=== PATIENT | female | born 1950 ===

== ENCOUNTER 2017-08-17 09:18 | Outpatient (CLI) | payer MEDICARE ==
[2017-08-17 11:36] LABS: #Basophils 0.1 thou/uL (0.0-0.2); #Lymphocytes 2.2 thou/uL (1.20-3.40); #Monocytes 0.7 thou/uL (0.11-0.59); #Neutrophils 5.5 thou/uL (1.40-6.50); %Basophils 0.9 % (0.0-1.0); %Eosinophils 10.4 % (0.0-10.0); %Lymphocytes 23.6 % (21.0-51.0); %Monocytes 7.1 % (0.0-10.0); %Neutrophils 58.1 % (42.0-75.0); Bilirubin Negative (Negative); Blood, Urine Trace (Negative); Clarity Cloudy (Clear); Glucose, Urine (Dipstick) Negative (Negative); Hemoglobin 13.6 g/dL (12.0-16.0); Leukocyte Large (Negative); Mean Corpuscular HGB CONC 33.1 g/dL (32.0-36.0); Mean Corpuscular Hemoglobin 29.6 pg (27.0-31.0); Mean Corpuscular Volume 89.3 fl (81.0-99.0); Mean Platelet Volume 7.4 fL (7.4-10.4); Nitrite Positive (Negative); Platelet Count 168 thou/uL (130-400); Protein, Urine (Dipstick) Negative (Neg-Trace); RBC Distribution Width 11.5 % (11.5-14.5); Urobilinogen 0.2 mg/dL (0.2-1.0); White Blood Cell (WBC) Count 9.5 thou/uL (4.8-10.8)
[2017-08-17 11:46] LABS: ALT (SGPT) 11 U/L (8-55); AST (SGOT) 14 U/L (5-34); Albumin 4.1 g/dL (3.4-4.8); Alkaline Phosphatase 99 U/L (40-150); Anion Gap 13 mmol/L (10-20); BUN (Urea Nitrogen) 13 mg/dL (9.8-20.1); Bilirubin, Total 0.6 mg/dL (0.2-1.2); Calc. Creatinine Clearance 0 mL/min (70-130); Calcium 9.9 mg/dL (7.8-10.44); Carbon Dioxide 29 mmol/L (23-31); Cardiac Risk 3.5 (Less than 4.5); Chloride 101 mmol/L (98-107); Cholesterol 151 mg/dl (< 200 Desired); Estimated GFR-MDRD 69; Globulin 2.9 g/dL (2.4-3.5); Glucose 127 mg/dL (80-115); HDL Cholesterol 43 mg/dL (>60 Neg Risk); LDL Cholesterol, Calculated 78 mg/dL; Potassium 4.1 mmol/L (3.5-5.1); Sodium 139 mmol/L (136-145); Triglycerides 150 mg/dL (Less than 150)
[2017-08-17 12:02] LABS: Bacteria/HPF 3+ HPF (None Seen); Hemoglobin A1c 5.9 % (4.0-6.0); Squamous Epithelial 0-3 HPF (0-3)
[2017-08-17 12:03] LABS: Crystals/HPF 2+ CA OXALATE HPF (Negative)
[2017-08-17 17:56] LABS: Creatinine, Urine 174.56 mg/dL (47-110); Microalbumin Urine 2.5 mg/dL (0.5-50.0); Microalbumin/Creat Ratio 14.3 mg/g (Less than 30)
== END 2017-08-17 09:19 | disposition home or self-care (01) ==
LOC: NAVSJIPCSP 09:18
PROVIDERS: ATTEND Internal Medicine
DX: E11.9 Type 2 diabetes mellitus without complications (principal); M51.36 Other intervertebral disc degeneration, lumbar region; E03.9 Hypothyroidism, unspecified; R39.15 Urgency of urination
CPT/HCPCS: 36415; 80053; 80061; 81003; 81015; 82043; 83036; 84443; 85025